=== PATIENT | female | born 1995 | race African-American/Black ===

== ENCOUNTER 2024-05-14 20:10 | Inpatient (IN) | payer OTHER ==
[2024-05-14 20:59] VITALS: BMI 26.9
[2024-05-14] MEDS ORDERED: hydrALAZINE 20 MG/ML VIAL SLOW IVP PRN ×2 (21:17→22:32)
[2024-05-14] MEDS: Lactated Ringer's 1,000 ML IV SCH (21:45)
[2024-05-14 21:46] LABS: #Basophils 0.02 10x3/uL (0.0-0.2); #Eosinophils 0.05 10x3/uL (0.0-0.5); #Monocytes 1.01 10x3/uL (0.0-1.1); #Neutrophils 4.07 10x3/uL (1.5-8.4); %Basophils 0.3 % (0.0-2.0); %Eosinophils 0.7 % (0.0-6.0); %Lymphocytes 27.6 % (18.0-47.0); %Monocytes 14.1 % (0.0-10.0); Hemoglobin 10.4 g/dL (12.0-15.5); Mean Corpuscular HGB CONC 33.5 g/dL (32.0-36.0); Mean Corpuscular Hemoglobin 29.2 pg (27.0-33.0); Mean Corpuscular Volume 87.1 fL (81.6-98.3); Mean Platelet Volume 8.8 fL (7.4-10.4); Platelet Count 248 10x3/uL (150-450); RBC Distribution Width 13.5 % (11.5-14.5); Red Blood Cell (RBC) Count 3.56 10x6/uL (3.90-5.03); White Blood Cell (WBC) Count 7.1 10x3/uL (3.5-10.5)
[2024-05-14 21:49] LABS: Bilirubin Neg (Negative); Blood, Urine 10 (Negative); Clarity Clear (Clear); Glucose, Urine (Dipstick) Normal (Negative); Ketone, Urine Negative (Negative); Leukocyte Negative (Negative); Nitrite Negative (Negative); Protein, Urine (Dipstick) 15 mg/dl (Neg-Trace); Urobilinogen Normal mg/dL (Less than 2)
[2024-05-14 21:56] LABS: Creatinine, Urine 90.46 mg/dL (47-110); Protein, Urine Random Quant Less than 10 mg/dL (1-14)
[2024-05-14 21:58] LABS: ALT (SGPT) 13 U/L (8-55); AST (SGOT) 15 U/L (5-34); Albumin 2.7 g/dL (3.5-5.0); Alkaline Phosphatase 110 U/L (40-110); Anion Gap 11 mmol/L (10-20); BUN (Urea Nitrogen) 8 mg/dL (7.0-18.7); Bilirubin, Total 0.2 mg/dL (0.2-1.2); Calc. Creatinine Clearance 142 mL/min (70-130); Calcium 8.8 mg/dL (7.8-10.44); Carbon Dioxide 21 mmol/L (22-29); Chloride 107 mmol/L (98-107); Estimated GFR 122; Globulin 3.9 g/dL (2.4-3.5); Glucose 87 mg/dL (70-105); Potassium 3.8 mmol/L (3.5-5.1); Protein, Total 6.6 g/dL (6.0-8.3); Sodium 135 mmol/L (136-145)
[2024-05-14 22:02] LABS: Troponin I Less than 0.010 ng/mL (< 0.028)
[2024-05-14] MEDS ORDERED: fentaNYL 50 mcg/mL 1 mL Vial SLOW IVP PRN (22:32)
[2024-05-14] MEDS ORDERED: Diphenoxylate HCl/Atropine Tablet PO PRN (22:32)
[2024-05-14] MEDS ORDERED: Carboprost 250 MCG/ML AMP IM PRN (22:32)
[2024-05-14] MEDS ORDERED: Misoprostol 200 MCG TAB PR PRN (22:32)
[2024-05-14] MEDS ORDERED: Promethazine HCl 25 MG/ML VIAL IM PRN (22:32)
[2024-05-14] MEDS ORDERED: Ondansetron PF 4 MG/2 ML Vial IVP PRN (22:32)
[2024-05-14] MEDS ORDERED: Bicitra 30 ML UDCUP PO PRN (22:34)
[2024-05-14] MEDS ORDERED: Famotidine/PF 20 mg/2ml Vial SLOW IVP PRN (22:34)
[2024-05-14 22:44] LABS: Bacteria/HPF Rare-Few HPF (None Seen); CAUTI Indications for Culture Pregnancy; RBC/HPF 0-3 HPF (0-3); Squamous Epithelial 0-3 HPF (0-3); WBC/HPF 0-3 HPF (0-3)
[2024-05-14 22:45] LABS: Urine Culture Reflex Yes Yes
[2024-05-14 22:56] LABS: Amphetamine Not Detected (NotDetected); Barbiturates Screen Not Detected (NotDetected); Benzodiazepine Screen Not Detected (NotDetected); Cocaine Metabolite Screen Not Detected (NotDetected); Methadone Not Detected (NotDetected); Methamphetamine Not Detected (NotDetected); Opiate Screen Not Detected (NotDetected); Oxycodone Screen Not Detected (NotDetected); Phencyclidine (PCP) Not Detected (NotDetected); THC/Cannabinoid Screen Detected (NotDetected); Tricyclic Screen Not Detected (NotDetected)
[2024-05-14] MEDS: CEFAZOLIN 2 GM in Sodium Chloride 0.9% 100 ML IVPB SCH (23:04)
[2024-05-14 23:21] LABS: Hematocrit 31.1 % (34.9-44.5); Hemoglobin 10.3 g/dL (12.0-15.5); Mean Corpuscular HGB CONC 33.1 g/dL (32.0-36.0); Mean Corpuscular Hemoglobin 28.8 pg (27.0-33.0); Mean Corpuscular Volume 86.9 fL (81.6-98.3); Mean Platelet Volume 9.3 fL (7.4-10.4); Platelet Count 261 10x3/uL (150-450); RBC Distribution Width 13.7 % (11.5-14.5); Red Blood Cell (RBC) Count 3.58 10x6/uL (3.90-5.03); White Blood Cell (WBC) Count 7.2 10x3/uL (3.5-10.5)
[2024-05-14 23:34] LABS: HBsAg Index 0.22 S/CO (0-0.99); HIV (1/2) Antibody/Antigen Non-Reactive (NonReactive); HIV 1/2 INDEX 0.09 S/CO (<1.00); Hep B Surf Ag - L&D Non-Reactive S/CO (NonReactive)
[2024-05-14 23:35] LABS: Syphilis Antibody Nonreactive (Nonreactive); Syphilis Antibody Index 0.05 S/CO (<1.00 Non-Reactive)
[2024-05-15] MEDS ORDERED: HYDROmorphone 2 MG/ML VIAL SLOW IVP PRN (01:01)
[2024-05-15] MEDS ORDERED: Naloxone HCl 0.4 mg/ml Vial IV PRN (01:01)
[2024-05-15] MEDS ORDERED: Promethazine HCl 25 MG/ML VIAL IM PRN ×2 (01:01)
[2024-05-15] MEDS ORDERED: Moisturizing Cream (Eucerin) 113 GM JAR TOP PRN (01:01)
[2024-05-15] MEDS ORDERED: Naloxone HCl 0.4 mg/ml Vial IVP PRN ×2 (01:01)
[2024-05-15] MEDS ORDERED: diphenhydrAMINE 50 MG/ML VIAL IVP PRN (01:01)
[2024-05-15] MEDS ORDERED: Ketorolac Tromethamine 30 MG/ML VIAL IVP PRN (01:01)
[2024-05-15] MEDS ORDERED: Ondansetron HCl/PF 4 MG/2 ML Vial IVP PRN (01:01)
[2024-05-15] MEDS ORDERED: Bisacodyl 10 MG SUPP PR PRN (01:06)
[2024-05-15] MEDS ORDERED: hydrALAZINE 20 MG/ML VIAL SLOW IVP PRN (01:06)
[2024-05-15] MEDS ORDERED: Lanolin Ointment 7 GM TUBE TOP PRN (01:06)
[2024-05-15] MEDS ORDERED: Acetaminophen 325 MG TAB PO PRN (01:06)
[2024-05-15] MEDS ORDERED: Communication Order-Pharmacy FS SCH (01:15)
[2024-05-15] MEDS: Ketorolac Tromethamine 30 MG (1 mL) VIAL IVP PRN (01:30)
[2024-05-15] MEDS: Oxytocin 30 units/NS 500 ML 500 ML IV SCH (02:29)
[2024-05-15] MEDS: fentaNYL 50 mcg/mL 1 mL Vial SLOW IVP PRN (02:34)
[2024-05-15] MEDS: Morphine 4 MG/ML VIAL SLOW IVP SCH (04:26)
[2024-05-15] MEDS: Morphine PF 10 MG/10 ML VIAL ONE (04:27)
[2024-05-15] MEDS: fentaNYL 50 mcg/mL 1 mL Vial ONE ×2 (04:27→04:29)
[2024-05-15] MEDS: Ondansetron PF 4 MG/2 ML Vial ONE (04:27)
[2024-05-15] MEDS: Oxytocin 10 UNITS/ML VIAL ONE (04:28)
[2024-05-15] MEDS: Phenylephrine 40 MG/NS 250 ML 250 ML ONE (04:28)
[2024-05-15] MEDS: Tranexamic Acid 1,000 MG/10 ML VIAL ONE (04:29)
[2024-05-15] MEDS: Ondansetron PF 4 MG/2 ML Vial IVP PRN (04:40)
[2024-05-15] MEDS: diphenhydrAMINE 25 MG CAP PO PRN (10:44)
[2024-05-15] MEDS: Prenatal Vitamin 1 TAB PO SCH (10:44)
[2024-05-15] MEDS: Docusate 100 MG CAP PO SCH (10:45)
[2024-05-15] MEDS: HYDROcodone/Acetaminophen 5/325 mg Tablet PO PRN (12:16)
[2024-05-15] MEDS ORDERED: Zolpidem Tartrate 5 MG TAB PO PRN (13:15)
[2024-05-15] MEDS: Ibuprofen 800 MG TAB PO SCH (21:59)
[2024-05-15] MEDS: Simethicone Chewable 80 MG TAB PO PRN (21:59)
[2024-05-16] MEDS: hydrOXYzine 25 MG TAB PO PRN (00:52)
[2024-05-16 05:00] LABS: Hematocrit 21.7 % (34.9-44.5); Hemoglobin 7.3 g/dL (12.0-15.5); Mean Corpuscular HGB CONC 33.6 g/dL (32.0-36.0); Mean Corpuscular Hemoglobin 29.4 pg (27.0-33.0); Mean Corpuscular Volume 87.5 fL (81.6-98.3); Mean Platelet Volume 8.5 fL (7.4-10.4); Platelet Count 178 10x3/uL (150-450); RBC Distribution Width 13.9 % (11.5-14.5); Red Blood Cell (RBC) Count 2.48 10x6/uL (3.90-5.03)
[2024-05-16] MEDS: Ibuprofen 800 MG TAB PO SCH (05:15)
[2024-05-16] MEDS: Boostrix 0.5 ML (Tdap) VIAL (>/=7 yrs of age) IM ONE (07:20)
[2024-05-16] MEDS: Ferrous Sulfate 325 MG TAB PO SCH (09:42)
[2024-05-16 14:28] LABS: Hematocrit 22.8 % (34.9-44.5); Hemoglobin 7.6 g/dL (12.0-15.5); Mean Corpuscular HGB CONC 33.3 g/dL (32.0-36.0); Mean Corpuscular Hemoglobin 29.3 pg (27.0-33.0); Mean Platelet Volume 8.8 fL (7.4-10.4); Platelet Count 199 10x3/uL (150-450); RBC Distribution Width 13.9 % (11.5-14.5); Red Blood Cell (RBC) Count 2.59 10x6/uL (3.90-5.03); White Blood Cell (WBC) Count 10.5 10x3/uL (3.5-10.5)
[2024-05-17] MEDS: Nitrofurantoin Monohyd/M-Cryst 100 MG CAP PO SCH (15:37)
[2024-05-17] MEDS: NIFEdipine XL 30 MG ER.TAB PO SCH (20:26)
[2024-05-17] MEDS: Acetaminophen 500 MG TAB PO PRN (20:27)
[2024-05-18] MEDS: Ibuprofen 200 MG TAB PO PRN (02:33)
[2024-05-18 04:10] LABS: Hematocrit 23.2 % (34.9-44.5); Hemoglobin 7.6 g/dL (12.0-15.5)
[2024-05-18 07:32] VITALS: BP 117/77; TEMP 97.9
[2024-05-18] MEDS: Nitrofurantoin Monohyd/M-Cryst 100 MG CAP PO SCH (08:10)
== END 2024-05-18 11:55 | disposition home or self-care (01) | DRG 787 ==
LOC: CSHLD/OP 20:10 → CSHLD 22:41 → CSHPP 05-15 03:15
PROVIDERS: ADMIT Obstetrics & Gynecology; ATTEND Obstetrics & Gynecology
PROC: 10D00Z1 Extraction of Products of Conception, Low, Open Approach (ICD-10-PCS; principal; 2024-05-15)
DX: O34.211 Maternal care for low transverse scar from previous cesarean delivery (principal); O99.324 Drug use complicating childbirth; Z3A.37 37 weeks gestation of pregnancy; Z37.0 Single live birth; Z90.49 Acquired absence of other specified parts of digestive tract; Z98.890 Other specified postprocedural states; F12.90 Cannabis use, unspecified, uncomplicated; O99.892 Other specified diseases and conditions complicating childbirth; R07.89 Other chest pain; O99.02 Anemia complicating childbirth
CPT/HCPCS: 36415; 51702; 80053; 80306; 81001; 82570; 84156; 84484; 85014; 85018; 85025; 85027; 86780; 86850; 86900; 86901; 87086; 87340; 87389; 99285; J1885; J2274; J2405; J2590; J3010; J7120

== ENCOUNTER 2024-05-20 22:52 | Inpatient (IN) | payer OTHER ==
[2024-05-20] MEDS ORDERED: Ondansetron PF 4 MG/2 ML Vial IVP PRN (23:19)
[2024-05-20] MEDS ORDERED: Ondansetron ODT 4 MG TAB PO PRN (23:19)
[2024-05-20 23:27] VITALS: BMI 25.7
[2024-05-20] MEDS ORDERED: Lorazepam 2 MG/ML VIAL SLOW IVP PRN (23:47)
[2024-05-20] MEDS ORDERED: Calcium Gluc 4.6 MEQ/10 ML (100 MG/ML) SLOW IVP PRN (23:47)
[2024-05-20 23:50] LABS: #Basophils 0.03 10x3/uL (0.0-0.2); #Eosinophils 0.07 10x3/uL (0.0-0.5); #Monocytes 0.71 10x3/uL (0.0-1.1); #Neutrophils 2.97 10x3/uL (1.5-8.4); %Basophils 0.5 % (0.0-2.0); %Eosinophils 1.2 % (0.0-6.0); %Lymphocytes 35.4 % (18.0-47.0); %Neutrophils 50.1 % (40.0-75.0); Hemoglobin 9.9 g/dL (12.0-15.5); Mean Corpuscular Hemoglobin 28.8 pg (27.0-33.0); Mean Corpuscular Volume 87.2 fL (81.6-98.3); Mean Platelet Volume 8.8 fL (7.4-10.4); Platelet Count 365 10x3/uL (150-450); RBC Distribution Width 13.8 % (11.5-14.5); Red Blood Cell (RBC) Count 3.44 10x6/uL (3.90-5.03); White Blood Cell (WBC) Count 5.9 10x3/uL (3.5-10.5)
[2024-05-20] MEDS: Magnesium Sulfate 20 gm/500 ml 20 GM/500 ML BAG ONE (23:54)
[2024-05-21 00:04] LABS: ALT (SGPT) 37 U/L (8-55); AST (SGOT) 19 U/L (5-34); Albumin 2.7 g/dL (3.5-5.0); Alkaline Phosphatase 104 U/L (40-110); Anion Gap 13 mmol/L (10-20); BUN (Urea Nitrogen) 9 mg/dL (7.0-18.7); Bilirubin, Total Less than 0.2 mg/dL (0.2-1.2); Calc. Creatinine Clearance 117 mL/min (70-130); Calcium 9.6 mg/dL (7.8-10.44); Carbon Dioxide 26 mmol/L (22-29); Chloride 105 mmol/L (98-107); Estimated GFR 113; Globulin 4.4 g/dL (2.4-3.5); Glucose 101 mg/dL (70-105); Protein, Total 7.1 g/dL (6.0-8.3); Sodium 140 mmol/L (136-145)
[2024-05-21] MEDS ORDERED: Labetalol HCl 100 MG/20 ML VIAL SLOW IVP PRN ×4 (00:05→08:27)
[2024-05-21 00:14] LABS: Bilirubin Neg (Negative); Blood, Urine 250 (Negative); Glucose, Urine (Dipstick) Normal (Negative); Ketone, Urine Negative (Negative); Leukocyte 100 (Negative); Nitrite Negative (Negative); Protein, Urine (Dipstick) 30 mg/dl (Neg-Trace); Urobilinogen Normal mg/dL (Less than 2)
[2024-05-21] MEDS: Ampicillin/Sulbactam 3 GM in Sodium Chloride 0.9% 100 ML IVPB SCH (00:15)
[2024-05-21 00:16] LABS: Clarity Hazy (Clear)
[2024-05-21 00:18] LABS: Bacteria/HPF Rare-Few HPF (None Seen); RBC/HPF Greater than 50 HPF (0-3); Squamous Epithelial 0-3 HPF (0-3); WBC/HPF 0-3 HPF (0-3)
[2024-05-21 00:19] LABS: Creatinine, Urine 46.12 mg/dL (47-110)
[2024-05-21] MEDS: hydrALAZINE 20 MG/ML VIAL SLOW IVP PRN (06:32)
[2024-05-21] MEDS: Magnesium Sulfate 20 gm/500 ml 20 GM/500 ML BAG IVPB SCH (08:10)
[2024-05-21] MEDS: Acetaminophen 500 MG TAB PO PRN (08:10)
[2024-05-21] MEDS: Famotidine/PF 20 mg/2ml Vial SLOW IVP SCH (09:12)
[2024-05-21] MEDS: Ibuprofen 800 MG TAB PO SCH (09:12)
[2024-05-21] MEDS: NIFEdipine XL 30 MG ER.TAB PO SCH (09:13)
[2024-05-22 08:28] LABS: #Basophils 0.02 10x3/uL (0.0-0.2); #Eosinophils 0.09 10x3/uL (0.0-0.5); #Monocytes 0.63 10x3/uL (0.0-1.1); #Neutrophils 2.88 10x3/uL (1.5-8.4); %Basophils 0.4 % (0.0-2.0); %Eosinophils 1.6 % (0.0-6.0); %Lymphocytes 34.9 % (18.0-47.0); %Monocytes 11.3 % (0.0-10.0); %Neutrophils 51.4 % (40.0-75.0); Hematocrit 28.5 % (34.9-44.5); Hemoglobin 9.5 g/dL (12.0-15.5); Mean Corpuscular HGB CONC 33.3 g/dL (32.0-36.0); Mean Corpuscular Volume 86.9 fL (81.6-98.3); Mean Platelet Volume 8.1 fL (7.4-10.4); Platelet Count 382 10x3/uL (150-450); RBC Distribution Width 13.9 % (11.5-14.5); Red Blood Cell (RBC) Count 3.28 10x6/uL (3.90-5.03); White Blood Cell (WBC) Count 5.6 10x3/uL (3.5-10.5)
[2024-05-22] MEDS: Amoxicillin/Potassium Clav 875 MG TAB PO SCH (21:27)
[2024-05-23] MEDS: Calcium Carbonate 500 MG ChewTAB PO PRN (08:46)
[2024-05-23] MEDS ORDERED: Ibuprofen 600 MG TAB PO PRN (08:58)
[2024-05-23] MEDS ORDERED: Acetaminophen 500 MG TAB PO PRN (08:59)
[2024-05-23] MEDS ORDERED: Labetalol HCl 100 MG/20 ML VIAL SLOW IVP PRN (09:01)
[2024-05-23] MEDS: Fluconazole 100 MG TAB PO SCH (09:20)
[2024-05-23] MEDS: Simethicone Chewable 80 MG TAB PO PRN (09:20)
[2024-05-23] MEDS: Labetalol HCl 100 MG TAB PO SCH (09:58)
[2024-05-23 12:25] VITALS: TEMP 98.8
[2024-05-23 16:17] VITALS: BP 129/87
[2024-05-23] MEDS ORDERED: Labetalol HCl 100 MG TAB PO SCH (21:00)
== END 2024-05-23 17:00 | disposition home or self-care (01) | DRG 776 ==
LOC: CSHERS 22:52 → CSHLD/OP 23:14 → CSHLD 23:46 → CSHPED 05-22 02:00
PROVIDERS: ADMIT Family Medicine; ATTEND Family Medicine
DX: O14.15 Severe pre-eclampsia, complicating the puerperium (principal); D64.9 Anemia, unspecified; O86.12 Endometritis following delivery
CPT/HCPCS: 36415; 80053; 81001; 82570; 84156; 85025; 99285; J0295; J0360; J3475; J3490